=== PATIENT | male | born 1955 | race Caucasian/White ===

== ENCOUNTER → 2020-05-13 | Outpatient (CLI) | payer MEDICARE, OTHER ==
--- NOTE | 2020-06-12 08:08 | REP ---
RIGHT THIRD DIGIT SERIES CLINICAL: Middle finger sprain. TECHNIQUE: AP, lateral, and bilateral oblique views of the right third digit. 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 The proximal interphalangeal joint appears relatively age appropriate/normal. There is no evidence for acute fracture or dislocation. IMPRESSION: No acute fracture or dislocation appreciated. MTDD
== END ==
LOC: M WUC 12:17
PROVIDERS: ATTEND Physician Assistant
DX: S63.612A Unspecified sprain of right middle finger, initial encounter (principal); X58.XXXA Exposure to other specified factors, initial encounter; Y92.9 Unspecified place or not applicable

== ENCOUNTER 2024-05-17 10:00 | Emergency (ER) | payer MEDICARE, OTHER ==
[~2024-05-17] VITALS: Ht 172.7 cm; Wt 74.5 kg
[2024-05-17] MEDS ORDERED: BIKT1TAB (10:12)
[2024-05-17] MEDS ORDERED: TIMO0.5S20 (10:12)
[2024-05-17] MEDS ORDERED: KETO2CR (10:12)
[2024-05-17] MEDS ORDERED: VALA500T5 (10:12)
[2024-05-17] MEDS ORDERED: TAMS1CAP17 (10:12)
[2024-05-17] MEDS ORDERED: ATOR40TA75 (10:12)
[2024-05-17 12:46] VITALS: BP 135/78; TEMP 97.4; O2SAT 99
== END 2024-05-17 12:48 | disposition home or self-care (01) ==
LOC: M ED 10:00
DX: N44.2 Benign cyst of testis (principal); Z79.02 Long term (current) use of antithrombotics/antiplatelets; Z79.899 Other long term (current) drug therapy; Z91.048 Other nonmedicinal substance allergy status

== ENCOUNTER 2024-06-06 10:49 | Emergency (ER) | payer MEDICARE, OTHER ==
[~2024-06-06] VITALS: Ht 172.7 cm; Wt 75.3 kg
[~2024-06-06 10:49] MED LIST: ATOR40TA75; BIKT1TAB; KETO2CR; TAMS1CAP17; TIMO0.5S20; VALA500T5
[2024-06-06] MEDS: ACETAMINOPHEN 325 MG TAB PO ONE (14:44)
[2024-06-06] MEDS: cefTRIAXone SOD 1 GM in D5W MINI-BAG PLUS 50 ML IV ONE (15:45)
[2024-06-06] MEDS: NS 1,000 ML IV ONE (15:46)
[2024-06-06 16:01] LABS: BASO % 0.2 % (0.0-1.0); EOS % 0.1 % (0.0-3.0); HEMATOCRIT 41.8 % (42.0-52.0); HEMOGLOBIN 14.5 g/dl (13.5-17.5); LYMPH # 1.2 10^3/uL (1.5-5.0); LYMPH % 6.8 % (24.0-44.0); MEAN CORPUSCULAR HEMOGLOBIN 31.5 pg (27.0-33.0); MEAN CORPUSCULAR HGB CONC 34.7 g/dl (32.0-36.5); MEAN CORPUSCULAR VOLUME 90.9 fl (80.0-96.0); MONO # 1.9 10^3/uL (0.0-0.8); MONO % 11.5 % (2.0-8.0); NEUTROPHILS # 13.6 10^3/uL (1.5-8.5); NEUTROPHILS % 80.5 % (36.0-66.0); PLATELET COUNT, AUTOMATED 191 10^3/uL (150-450); WHITE BLOOD COUNT 16.9 10^3/uL (4.0-10.0)
[2024-06-06 16:25] LABS: BLOOD UREA NITROGEN 17 MG/DL (9-23); CALCIUM LEVEL 8.3 MG/DL (8.3-10.6); CARBON DIOXIDE LEVEL 22 MMOL/L (20-31); CHLORIDE LEVEL 106 MMOL/L (98-107); CREATININE FOR GFR 0.99 MG/DL (0.70-1.30); GLOMERULAR FILTRATION RATE > 60.0 (>42); GLUCOSE, FASTING 115 MG/DL (74-106); POTASSIUM SERUM 3.5 MMOL/L (3.5-5.1); SODIUM LEVEL 135 MMOL/L (136-145)
[2024-06-06] MEDS ORDERED: CEFD300C PO (16:43)
[2024-06-06 16:57] VITALS: BP 115/72; TEMP 98.7; O2SAT 100
== END 2024-06-06 17:04 | disposition left against medical advice (07) ==
LOC: M ED 10:49
DX: N39.0 Urinary tract infection, site not specified (principal); E78.5 Hyperlipidemia, unspecified; Z21 Asymptomatic human immunodeficiency virus [HIV] infection status; Z91.048 Other nonmedicinal substance allergy status; Z79.02 Long term (current) use of antithrombotics/antiplatelets; Z79.2 Long term (current) use of antibiotics; Z79.899 Other long term (current) drug therapy; Z53.9 Procedure and treatment not carried out, unspecified reason
CPT/HCPCS: 80048; 81001; 83605; 85025; 87040; 87088; 87186; 96361; 96365; 99284; J0696